=== PATIENT | male | born 1990 | race Caucasian/White ===

== ENCOUNTER 2017-02-27 16:26 | Emergency (ER) | payer OTHER ==
[~2017-02-27 16:26] MED LIST: DIFLUCAN150 M1 PO; FLAGYL500 MG PO; IBUPROFEN800 MG PO; KEFLEX 250MG C250 MG PO; PROAIR HFA0.09 MG/Ac INH; TAMIFLU 75MG75 MG PO; ZITHROMAX500 M2 PO; ZOFRAN ODT4 M1 SL
[2017-02-27 17:06] LABS: ABSOLUTE BASOPHIL COUNT 0.1 /CUMM (0.0-0.2); ABSOLUTE EOSINOPHIL COUNT 0.4 /CUMM (0.0-0.7); ABSOLUTE GRANULOCYTE CT 5.8 /CUMM (1.4-6.5); ABSOLUTE LYMPH COUNT 2.6 /CUMM (1.2-3.4); ABSOLUTE MONOCYTE COUNT 0.6 /CUMM (0.10-0.60); BASOPHIL % 0.8 % (0.0-2.0); EOSINOPHIL % 4.5 % (0-5); GRANULOCYTE % 60.9 % (42.2-75.2); HEMATOCRIT 43.8 % (42-52); MEAN CORPUSCULAR HGB 30.9 PG (27.0-31.0); MEAN CORPUSCULAR HGB CONC 33.8 G/DL (33.0-37.0); MEAN CORPUSCULAR VOLUME 91.5 FL (80.0-94.0); MEAN PLATELET VOLUME 8.6 FL (7.4-10.4); PLATELET COUNT 212 /CUMM (130-400); RBC DISTRIBUTION WIDTH 12.4 % (11.5-14.5); RED BLOOD CELL CT 4.78 /CUMM (4.70-6.10); WHITE BLOOD CELL COUNT 9.5 /CUMM (4.8-10.8)
[2017-02-27] MEDS ORDERED: PERCOCET 5-3251 EACH PO (18:17)
[2017-02-27] MEDS ORDERED: ZOFRAN ODT4 M1 SL (18:20)
--- NOTE | 2017-02-27 18:20 | ED GI/GU/ABDOMINAL COMPLAINT ---
History of Present Illness General Chief Complaint: General Adult Stated Complaint: "I BELIEVE I HAVE ULCERS, ABD PAIN" PER PT Source: patient Exam Limitations: no limitations Vital Signs & Intake/Output Vital Signs & Intake/Output Vital Signs Date Time Temp Pulse Resp B/P Pulse O2 O2 Flow FiO2 Ox Delivery Rate 02/27 1849 98.1 68 20 142/74 98 Room Air 02/27 1648 97.4 70 22 143/80 98 Room Air Allergies Uncoded Allergies: SEASONAL (04/13/14) Reconcile Medications Azithromycin (Zithromax) 500 MG TABLET 2 TAB PO ONCE STD Fluconazole (Diflucan) 150 MG TABLET 1 TAB PO ONCE std Metronidazole (Flagyl) 500 MG TABLET 4 TAB PO ONCE std Ondansetron (Zofran Odt) 4 MG TAB.RAPDIS 1 TAB SL TID nausea Ondansetron (Zofran Odt) 4 MG TAB.RAPDIS 1 TAB SL Q6P PRN nausea Oxycodone HCl/Acetaminophen (Percocet 5-325 MG Tablet) 5 MG-325 MG TABLET 1-2 TAB PO Q6P PRN pain Pantoprazole Sodium (Protonix) 40 MG TABLET.DR 1 TAB PO DAILY abd pain Triage Note: PER PT ?ULCERS SEVERE ABD PAIN MOTRIN WITHOUT EFFECT X 1 MONTH BUT TOO BUSY WITH WORK, AND JUST GOT INSURANCE Triage Nurses Notes Reviewed? yes Onset: Abrupt Duration: week(s):, intermittent Timing: recent history Quality/Severity: moderate, sharpness Location: epigastric, generalized abdomen Radiation: no radiation Activities at Onset: none No Modifying Factors: none HPI: 26-year-old male comes into emergency room with complaints of intermittent abdominal pain is been going on for the past month. Pain is very sharp at times. Patient has taken Motrin with no relief. He denies any vomiting but has associated nausea. Some intermittent fevers. Nothing seems to make the symptoms better or worse. Denies any blood in his stool or changes in bowel movement. Denies any other associated symptoms. Past History Travel History Traveled to [place] past 21 day No Medical History Any Pertinent Medical History? see below for history Neurological: NONE EENT: allergies Cardiovascular: NONE Respiratory: NONE Gastrointestinal: NONE Hepatic: NONE Renal: NONE Musculoskeletal: NONE Psychiatric: ANXIETY,DEPRESSION Endocrine: NONE PATIENT PORTAL CONCIERGE/Reproductive: chlamydia, gonorrhea Surgical History Surgical History: non-contributory Psychosocial History What is your primary language Kazakh Tobacco Use: Current Daily Use Daily Tobacco Use Amount/Type: => 5 Cigarettes daily ETOH Use: denies use Illicit Drug Use: denies illicit drug use, former opiod abuse many years ago Family History Hx Contributory? No Review of Systems Review of Systems Constitutional: Reports: no symptoms. EENTM: Reports: no symptoms. Respiratory: Reports: no symptoms. Cardiovascular: Reports: no symptoms. GI: Reports: see HPI. Genitourinary: Reports: no symptoms. Musculoskeletal: Reports: no symptoms. Skin: Reports: no symptoms. Neurological/Psychological: Reports: no symptoms. Hematologic/Endocrine: Reports: no symptoms. Immunologic/Allergic: Reports: no symptoms. All Other Systems: Reviewed and Negative Physical Exam Physical Exam General Appearance: well developed/nourished, no apparent distress, alert Head: atraumatic, normal appearance Eyes: Bilateral: normal appearance, EOMI. Ears, Nose, Throat, Mouth: hearing grossly normal, moist mucous membrane Neck: normal inspection, full range of motion Respiratory: normal breath sounds, no respiratory distress Cardiovascular: regular rate/rhythm Gastrointestinal: soft, tenderness (mild), no guarding, no rebound tenderness Back: normal inspection Extremities: normal range of motion Neurologic/Psych: awake, alert, oriented x 3, normal gait Skin: intact, normal color Core Measures ACS in differential dx? No Severe Sepsis Present: No Septic Shock Present: No Progress Differential Diagnosis: appendicitis, biliary colic, cholecystitis, diverticulitis, esophageal varices, gastritis, hepatitis, ischemic bowel, inflamm bowel dis, pancreatitis, peptic ulcer, PUD/GERD, perforated viscous, pyelonephritis, SBO, urinary retention, UTI/pyelo Plan of Care: Orders Procedure Date/time Status LIPASE 02/27 165 Complete LACTIC ACID 02/27 165 Complete COMPREHENSIVE METABOLIC PANEL 02/27 1650 Complete CBC WITHOUT DIFFERENTIAL 02/27 1650 Complete AMYLASE 02/27 165 Complete Laboratory Tests 02/27/17 1950: Lactic Acid Cancelled 02/27/17 1700: Anion Gap 11, Estimated GFR > 60, BUN/Creatinine Ratio 11.1, Glucose 110 H, Lactic Acid 0.7, Calcium 9.2, Total Bilirubin 0.6, AST 23, ALT 42, Alkaline Phosphatase 57, Total Protein 6.9, Albumin 4.4, Globulin 2.5, Albumin/Globulin Ratio 1.8, Amylase 206 H, Lipase 2391 H, CBC w Diff NO MAN DIFF REQ, RBC 4.78, MCV 91.5, MCH 30.9, RDW 12.4, MPV 8.6, Gran % 60.9, Lymphocytes % 27.1, Monocytes % 6.7, Eosinophils % 4.5, Basophils % 0.8, Absolute Granulocytes 5.8, Absolute Lymphocytes 2.6, Absolute Monocytes 0.6, Absolute Eosinophils 0.4, Absolute Basophils 0.1, PUBS MCHC 33.8 Initial ED EKG: none Comments: 02/27/2017 8:35:30 PM Patient signed out AGAINST MEDICAL ADVICE. It was recommended that the patient stayed here for diagnostic imaging and further evaluation. It is unclear at this time as to why the patient has pancreatitis. He denies any alcohol use. Patient should get further evaluation with CAT scan/ultrasound. GI Dr. Caal was consulted and he agrees with plan of care. Patient understands the risk of leaving AGAINST MEDICAL ADVICE. It was explained to the patient that pancreatitis is potentially life-threatening. That being said patient is alert and oriented and able to make his own medical decisions. He is hemodynamically stable and does not appear to be any type of distress. He was recommended to the patient to go on a clear liquid diet and he was given pain medications to go home with. He was given information for Dr. Caal to contact tomorrow for follow-up appointment and he was told to return to the emergency room for admission when he was able to. Patient understands everything has been explained to him. Patient was counseled on the opioid prescription due to his previous history of opiate abuse but reports that he is in too much pain at home and needs something stronger. Patient was also started on a proton pump inhibitor. Departure Departure Disposition: HOME OR SELF CARE Condition: Stable Clinical Impression Primary Impression: Pancreatitis Referrals: CARLITO RAMÍREZ,ZHENG CLAUDIO MD,CARLOS (PCP/Family) Additional Instructions: Take Percocet as prescribed. Take Zofran ODT as needed. Clear liquid diet. Follow-up with career information specialist provided. You're leaving AGAINST MEDICAL ADVICE. It has been recommended that he stay here in the hospital. Pancreatitis could potentially be life-threatening. The cause of your pancreatitis at this time is unclear anymore require a further evaluation. You need close follow-up with career information specialist as well as her primary care doctor. Please go over all results of today's visit with your primary care doctor. Contact your primary care doctor to let them know you were here in the emergency room. There may be nonspecific findings which may not be related to your visit today here in the emergency room but may require further evaluation and chronic monitoring by your primary care doctor. If you had a laceration today the chance of foreign body always remains. You should follow-up with your primary care doctor for recheck in 3-5 days for a wound check. If you had an x-ray done there is a chance that a fracture could have been missed on initial read and you should follow-up with your primary care doctor for repeat x-rays if symptoms persist. If your blood pressure was elevated here in the emergency room please have rechecked by her primary care doctor within the next 48 hours by your primary care doctor. If you were prescribed a narcotic here in the emergency room or any type of controlled substances you're not allowed to drive while taking this medication or operate any type of heavy machinery. Narcotics can make you feel lightheaded dizziness nausea and can cause constipation. You may need to sisal picker a stool softener. Thank you for choosing [facility] emergency room. Please return to the emergency room immediately if you have any other concerns worsening of symptoms. Departure Forms: Customer Survey General Discharge Information Prescriptions: Current Visit Scripts Oxycodone HCl/Acetaminophen (Percocet 5-325 MG Tablet) 1-2 TAB PO Q6P PRN pain #20 TAB Ondansetron (Zofran Odt) 1 TAB SL TID #10 TAB Pantoprazole Sodium (Protonix) 1 TAB PO DAILY #30 TAB
[2017-02-27 18:49] VITALS: BP 142/74
[2017-02-27] MEDS ORDERED: PROTONIX40 M3 PO (18:49)
== END 2017-02-27 18:57 | disposition left against medical advice (07) ==
LOC: ERH 16:26
PROVIDERS: Emergency Medicine
DX: K85.90 Acute pancreatitis without necrosis or infection, unspecified (principal)

== ENCOUNTER 2017-03-01 15:08 | Emergency (ER) | payer OTHER ==
[~2017-03-01] VITALS: Ht 182.9 cm; Wt 77.1 kg
[~2017-03-01 15:08] MED LIST changes: +PERCOCET 5-3251 EACH PO; +PROTONIX40 M3 PO
[2017-03-01 15:32] LABS: ABSOLUTE BASOPHIL COUNT 0.1 /CUMM (0.0-0.2); ABSOLUTE EOSINOPHIL COUNT 0.5 /CUMM (0.0-0.7); ABSOLUTE GRANULOCYTE CT 5.3 /CUMM (1.4-6.5); ABSOLUTE LYMPH COUNT 1.9 /CUMM (1.2-3.4); ABSOLUTE MONOCYTE COUNT 0.4 /CUMM (0.10-0.60); BASOPHIL % 0.7 % (0.0-2.0); GRANULOCYTE % 65.5 % (42.2-75.2); MEAN CORPUSCULAR HGB 30.9 PG (27.0-31.0); MEAN CORPUSCULAR HGB CONC 33.5 G/DL (33.0-37.0); MEAN CORPUSCULAR VOLUME 92.4 FL (80.0-94.0); MEAN PLATELET VOLUME 8.7 FL (7.4-10.4); PLATELET COUNT 215 /CUMM (130-400); RBC DISTRIBUTION WIDTH 12.8 % (11.5-14.5); RED BLOOD CELL CT 5.58 /CUMM (4.70-6.10); WHITE BLOOD CELL COUNT 8.1 /CUMM (4.8-10.8)
[2017-03-01 15:38] LABS: HEMATOCRIT 51.5 % (42-52)
--- NOTE | 2017-03-01 15:53 | ED GI/GU/ABDOMINAL COMPLAINT ---
History of Present Illness General Chief Complaint: Abdominal Pain/Flank Pain Stated Complaint: ABNORMAL LABS, ABDOMINAL PAIN (SEEN 02/27) Source: patient, old records Exam Limitations: no limitations Vital Signs & Intake/Output Vital Signs & Intake/Output Vital Signs Date Time Temp Pulse Resp B/P Pulse O2 O2 Flow FiO2 Ox Delivery Rate 03/01 1605 98.3 71 20 120/68 98 Room Air 03/01 1553 97 Room Air 03/01 1519 98.0 98 18 124/74 100 Room Air Allergies Uncoded Allergies: SEASONAL (04/13/14) Reconcile Medications Ondansetron (Zofran Odt) 4 MG TAB.RAPDIS 1 TAB SL TID nausea Oxycodone HCl/Acetaminophen (Percocet 5-325 MG Tablet) 5 MG-325 MG TABLET 1-2 TAB PO Q6P PRN pain Oxycodone HCl/Acetaminophen (Percocet 10-325 MG Tablet) 10 MG-325 MG TABLET 1- 2 TAB PO 4 TIMES/DAY pain Pantoprazole Sodium (Protonix) 40 MG TABLET.DR 1 TAB PO DAILY abd pain Triage Note: PT TO ED FOR "PANCREAS PAIN" REPORTS HE WAS SEEN IN ED FOR SAME RECENTLY "BUT LEFT BECAUSE I HAD TO WORK, MY PANCREAS LEVELS WERE OVER 1999" PT C/O SEVERE ABD PAIN, BACK PAIN AND NAUSEA. Triage Nurses Notes Reviewed? yes Onset: Abrupt Duration: hour(s): Timing: recent history Quality/Severity: moderate, sharpness, severe Location: generalized abdomen Radiation: no radiation Activities at Onset: none No Modifying Factors: none HPI: 26-year-old male comes into emergency room with complaints of abdominal pain. Patient was seen here 2 days ago and diagnosed with pancreatitis. Patient left AGAINST MEDICAL ADVICE at that time because he needed to go to work. Patient was referred to follow-up with gastric urologist. Patient denies any type of fever chills or vomiting currently. He reports that the symptoms of been going on for about a month. He reports that he has had some intermittent fevers over the past month. He denies any alcohol use. Denies any previous abdominal surgeries. He denies any urinary symptoms. Denies any blood in his stool. Denies any prior history of pancreatitis. Nothing seems to make his symptoms better or worse. (MALCOLM RAHMAN,IWONA) Past History Travel History Traveled to [place] past 21 day No Medical History Any Pertinent Medical History? see below for history Neurological: NONE EENT: allergies Cardiovascular: NONE Respiratory: NONE Gastrointestinal: NONE Hepatic: NONE Renal: NONE Musculoskeletal: NONE Psychiatric: ANXIETY,DEPRESSION Endocrine: NONE SSAS DEVELOPER/Reproductive: chlamydia, gonorrhea Surgical History Surgical History: non-contributory Psychosocial History What is your primary language Urdu Tobacco Use: Current Daily Use Daily Tobacco Use Amount/Type: => 5 Cigarettes daily ETOH Use: occasional use Illicit Drug Use: denies illicit drug use Family History Hx Contributory? No (IWONA LOPEZ) Review of Systems Review of Systems Constitutional: Reports: no symptoms. EENTM: Reports: no symptoms. Respiratory: Reports: see HPI. Cardiovascular: Reports: no symptoms. GI: Reports: no symptoms. Genitourinary: Reports: no symptoms. Musculoskeletal: Reports: no symptoms. Skin: Reports: no symptoms. Neurological/Psychological: Reports: no symptoms. Hematologic/Endocrine: Reports: no symptoms. Immunologic/Allergic: Reports: no symptoms. All Other Systems: Reviewed and Negative (IWONA LOPEZ) Physical Exam Physical Exam General Appearance: well developed/nourished, no apparent distress, alert Head: atraumatic, normal appearance Eyes: Bilateral: normal appearance, EOMI. Ears, Nose, Throat, Mouth: hearing grossly normal, moist mucous membrane Neck: normal inspection, full range of motion Respiratory: normal breath sounds, no respiratory distress Cardiovascular: regular rate/rhythm Gastrointestinal: soft, tenderness (mild) Back: normal inspection Extremities: normal range of motion Neurologic/Psych: awake, alert, oriented x 3, normal gait Skin: intact, normal color Core Measures ACS in differential dx? No Severe Sepsis Present: No Septic Shock Present: No (IWONA LOPEZ) Progress Differential Diagnosis: AAA, AMI, appendicitis, cholecystitis, diverticulitis, gastritis, hepatitis Plan of Care: Orders Procedure Date/time Status URINALYSIS 03/01 1511 Complete LIPASE 03/01 1511 Complete COMPREHENSIVE METABOLIC PANEL 03/01 1511 Complete CBC WITHOUT DIFFERENTIAL 03/01 151 Complete AMYLASE 03/01 1511 Complete Laboratory Tests 03/01/17 1525: Urine Color YEL, Urine Clarity CLEAR, Urine pH 6.0, Ur Specific Ajo 1.025, Urine Protein NEG, Urine Ketones TRACE H, Urine Nitrite NEG, Urine Bilirubin NEG@ICTO, Urine Urobilinogen 1.0, Ur Leukocyte Esterase NEG, Ur Microscopic EXAM NOT REQUIRED, Urine Hemoglobin NEG, Urine Glucose NEG 03/01/17 1520: Anion Gap 11, Estimated GFR > 60, BUN/Creatinine Ratio 11.1, Glucose 111 H, Calcium 10.2, Total Bilirubin 0.9, AST 25, ALT 34, Alkaline Phosphatase 61, Total Protein 7.8, Albumin 4.8, Globulin 3.0, Albumin/Globulin Ratio 1.6, Amylase < 30 L, Lipase 48, CBC w Diff NO MAN DIFF REQ, RBC 5.58, MCV 92.4, MCH 30.9, RDW 12.8, MPV 8.7, Gran % 65.5, Lymphocytes % 23.0, Monocytes % 4.8, Eosinophils % 6.0 H, Basophils % 0.7, Absolute Granulocytes 5.3, Absolute Lymphocytes 1.9, Absolute Monocytes 0.4, Absolute Eosinophils 0.5, Absolute Basophils 0.1, PUBS MCHC 33.5 Diagnostic Imaging: Viewed by Me: CT Scan. Discussed w/RAD: CT Scan. Radiology Impression: SERVICE DATE: 03/01/17-1519 EXAM TYPE: CAT - CT ABD & PELVIS W/O IV CONTRAS EXAMINATION: CT ABDOMEN AND PELVIS WITHOUT CONTRAST CLINICAL INFORMATION: Elevated lipase other day. Assess for gallstones or pancreatitis. COMPARISON: None TECHNIQUE: Multidetector volumetric imaging was performed from the superior aspect of the liver through the pubic symphysis. Sagittal and coronal reformatted images were obtained on the technologist's workstation. DLP: 269 mGy-cm FINDINGS: LUNG BASES: The visualized lung bases are unremarkable. LIVER, GALLBLADDER, AND BILIARY TREE: The liver is normal in size, shape, and attenuation. No focal hepatic lesion is present. Top normal caliber of the common bile duct, measuring 0.6 cm. No visualized choledocholithiasis per The gallbladder is unremarkable with no evidence of radiopaque gallstones, gallbladder wall thickening, or obvious pericholecystic inflammatory changes. PANCREAS: No peripancreatic stranding or fluid collection. Unremarkable appearance of the pancreas. SPLEEN: Unremarkable. ADRENAL GLANDS: Unremarkable. KIDNEYS AND URETERS: The kidneys are normal in size, shape, and attenuation. No hydronephrosis, hydroureter, or calculi seen. No perinephric stranding. BLADDER: Decompressed. GASTROINTESTINAL TRACT: Bowel gas pattern is nonobstructive. No evidence of acute bowel inflammation. The appendix is normal. ABDOMINAL WALL: No significant hernia is appreciated. LYMPH NODES: Normal. VASCULAR: Unremarkable. PELVIC VISCERA: Unremarkable. OSSEOUS STRUCTURES: No acute osseous abnormalities. IMPRESSION: 1. Unremarkable appearance of the pancreas. No peripancreatic stranding or fluid collection. 2. Top normal caliber of the common bile duct. No visualized choledocholithiasis. 3. Unremarkable appearance of the gallbladder. No radiodense gallstones. DICTATED BY: RAVINDRA KINCAID MD DATE/TIME DICTATED:03/01/171554 [facility] GROOM:NHUNG DATE/TIME TRANSCRIBED:03/01/171554 Initial ED EKG: none Comments: 03/01/2017 6:08:59 PM Patient clinically looks well. Nontoxic-appearing. In no apparent distress. Lipase and amylase are normal today. No abnormal findings on CAT scan. Patient was given a slip for an outpatient ultrasound. Case was discussed with Dr. Aguila. Patient will follow-up with GI next week in the office. Patient was told to contact them on Friday and also set up the ultrasound for Friday. (IWONA LOPEZ) Departure Departure Disposition: HOME OR SELF CARE Condition: Stable Clinical Impression Primary Impression: Abdominal pain Referrals: CARLOS CLAUDIO MD (PCP/Family) Additional Instructions: Take oxycodone for pain. Follow-up with mailroom associate that was provided to already. Call number on Friday. These return to the emergency room if any other concerns worsening symptoms. Please go over all results of today's visit with your primary care doctor. Contact your primary care doctor to let them know you were here in the emergency room. There may be nonspecific findings which may not be related to your visit today here in the emergency room but may require further evaluation and chronic monitoring by your primary care doctor. If you had a laceration today the chance of foreign body always remains. You should follow-up with your primary care doctor for recheck in 3-5 days for a wound check. If you had an x-ray done there is a chance that a fracture could have been missed on initial read and you should follow-up with your primary care doctor for repeat x-rays if symptoms persist. If your blood pressure was elevated here in the emergency room please have rechecked by her primary care doctor within the next 48 hours by your primary care doctor. If you were prescribed a narcotic here in the emergency room or any type of controlled substances you're not allowed to drive while taking this medication or operate any type of heavy machinery. Narcotics can make you feel lightheaded dizziness nausea and can cause constipation. You may need to slate picker a stool softener. Thank you for choosing [facility] emergency room. Please return to the emergency room immediately if you have any other concerns worsening of symptoms. Departure Forms: Customer Survey General Discharge Information Prescriptions: Current Visit Scripts Oxycodone HCl/Acetaminophen (Percocet 10-325 MG Tablet) 1-2 TAB PO 4 TIMES/DAY #15 TAB (IWONA LOPEZ) PA/STATE APPELLATE CLERK Co-Sign Statement Statement: ED Attending supervision documentation- [] I saw and evaluated the patient. I have also reviewed all the pertinent lab results and diagnostic results. I agree with the findings and the plan of care as documented in the PA's/STATE APPELLATE CLERK's documentation. x I have reviewed the ED Record and agree with the PA's/STATE APPELLATE CLERK's documentation. [] Additions or exceptions (if any) to the PAs/STATE APPELLATE CLERK's note and plan are summarized below: [] (JULIA RAMÍREZ,RAISSA)
[2017-03-01 16:05] VITALS: BP 120/68
--- NOTE | 2017-03-01 16:08 | CT SCAN REPORT ---
EXAMINATION: CT ABDOMEN AND PELVIS WITHOUT CONTRAST CLINICAL INFORMATION: Elevated lipase other day. Assess for gallstones or pancreatitis. COMPARISON: None TECHNIQUE: Multidetector volumetric imaging was performed from the superior aspect of the liver through the pubic symphysis. Sagittal and coronal reformatted images were obtained on the technologist's workstation. DLP: 269 mGy-cm FINDINGS: LUNG BASES: The visualized lung bases are unremarkable. LIVER, GALLBLADDER, AND BILIARY TREE: The liver is normal in size, shape, and attenuation. No focal hepatic lesion is present. Top normal caliber of the common bile duct, measuring 0.6 cm. No visualized choledocholithiasis per The gallbladder is unremarkable with no evidence of radiopaque gallstones, gallbladder wall thickening, or obvious pericholecystic inflammatory changes. PANCREAS: No peripancreatic stranding or fluid collection. Unremarkable appearance of the pancreas. SPLEEN: Unremarkable. ADRENAL GLANDS: Unremarkable. KIDNEYS AND URETERS: The kidneys are normal in size, shape, and attenuation. No hydronephrosis, hydroureter, or calculi seen. No perinephric stranding. BLADDER: Decompressed. GASTROINTESTINAL TRACT: Bowel gas pattern is nonobstructive. No evidence of acute bowel inflammation. The appendix is normal. ABDOMINAL WALL: No significant hernia is appreciated. LYMPH NODES: Normal. VASCULAR: Unremarkable. PELVIC VISCERA: Unremarkable. OSSEOUS STRUCTURES: No acute osseous abnormalities. IMPRESSION: 1. Unremarkable appearance of the pancreas. No peripancreatic stranding or fluid collection. 2. Top normal caliber of the common bile duct. No visualized choledocholithiasis. 3. Unremarkable appearance of the gallbladder. No radiodense gallstones.
[2017-03-01] MEDS ORDERED: PERCOCET 10-321 EACH PO (17:16)
== END 2017-03-01 17:36 ==
LOC: ERH 15:08
PROVIDERS: Physician Assistant Medical
DX: R10.84 Generalized abdominal pain (principal)
CPT/HCPCS: 74176; 81003

== ENCOUNTER 2017-03-04 14:36 | Emergency (ER) | payer OTHER ==
[~2017-03-04 14:36] MED LIST changes: +PERCOCET 10-321 EACH PO
[2017-03-04 14:52] VITALS: BP 118/87
[2017-03-04 16:06] LABS: ABSOLUTE BASOPHIL COUNT 0.1 /CUMM (0.0-0.2); ABSOLUTE EOSINOPHIL COUNT 0.5 /CUMM (0.0-0.7); ABSOLUTE GRANULOCYTE CT 6.8 /CUMM (1.4-6.5); ABSOLUTE LYMPH COUNT 1.9 /CUMM (1.2-3.4); ABSOLUTE MONOCYTE COUNT 0.6 /CUMM (0.10-0.60); BASOPHIL % 0.6 % (0.0-2.0); EOSINOPHIL % 5.4 % (0-5); GRANULOCYTE % 68.9 % (42.2-75.2); MEAN CORPUSCULAR HGB 30.7 PG (27.0-31.0); MEAN CORPUSCULAR HGB CONC 33.2 G/DL (33.0-37.0); MEAN CORPUSCULAR VOLUME 92.3 FL (80.0-94.0); MEAN PLATELET VOLUME 8.5 FL (7.4-10.4); PLATELET COUNT 196 /CUMM (130-400); RBC DISTRIBUTION WIDTH 12.8 % (11.5-14.5); RED BLOOD CELL CT 4.95 /CUMM (4.70-6.10); WHITE BLOOD CELL COUNT 9.8 /CUMM (4.8-10.8)
[2017-03-04 16:11] LABS: HEMATOCRIT 45.7 % (42-52)
--- NOTE | 2017-03-04 16:39 | ED GI/GU/ABDOMINAL COMPLAINT ---
History of Present Illness General Chief Complaint: Abdominal Pain/Flank Pain Stated Complaint: ONGOING ABD. PAIN, MISSED U/S TODAY DUE TO PAIN Source: patient, old records Exam Limitations: no limitations Vital Signs & Intake/Output Vital Signs & Intake/Output Vital Signs Date Time Temp Pulse Resp B/P Pulse O2 O2 Flow FiO2 Ox Delivery Rate 03/04 1452 98.1 85 18 118/87 97 Room Air Allergies Uncoded Allergies: SEASONAL (04/13/14) Reconcile Medications Ondansetron (Zofran Odt) 4 MG TAB.RAPDIS 1 TAB SL TID nausea Oxycodone HCl/Acetaminophen (Percocet 5-325 MG Tablet) 5 MG-325 MG TABLET 1-2 TAB PO Q6P PRN pain Oxycodone HCl/Acetaminophen (Percocet 10-325 MG Tablet) 10 MG-325 MG TABLET 1- 2 TAB PO 4 TIMES/DAY pain Oxycodone HCl/Acetaminophen (Percocet 7.5-325 MG Tablet) 7.5 MG-325 MG TABLET 1 TAB PO TID pain Pantoprazole Sodium (Protonix) 40 MG TABLET.DR 1 TAB PO DAILY abd pain Triage Note: TRIAGE; PT TO ED WITH ABDOMINAL PAIN. WAS DIAGNOSED WITH PANCREATITIS. PT STATES THAT HE WAS SUPPOSED TO HAVE AN ULTRASOUND TODAY BUT WAS IN TOO MUCH PAIN TO GO TO IT. STATES HE GOES TO IOP CLASSES BUT STATES HE NEEDS TO FOCUS ON HIS HEALTH AND TOLD HE SHOULDNT GO TO THOSE CLASSES IN ORDER TO DO THAT. HAS BEEN ON 10MG OXY'S WITH NO HELP. Triage Nurses Notes Reviewed? yes Onset: Abrupt Duration: day(s): Timing: recent history Location: epigastric No Modifying Factors: none HPI: 26-year-old male comes into emergency room for further evaluation of persistent abdominal pain. This is the patient's third visit in the past week. Patient still has not called the helper coordinator like he was supposed to. Patient didnt get Outpatient ultrasound of his abdomen like he was supposed to. Patient reports she still having some intermittent pain to his abdomen. Denies any fever or chills. Denies any change in bowel movement. Denies any other associated symptoms. (IWONA LOPEZ) Past History Travel History Traveled to [place] past 21 day No Medical History Any Pertinent Medical History? 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 No (IWONA LOPEZ) Review of Systems Review of Systems Constitutional: Reports: no symptoms. EENTM: Reports: no symptoms. Respiratory: Reports: no symptoms. Cardiovascular: Reports: no symptoms. GI: Reports: see HPI. Genitourinary: Reports: no symptoms. Musculoskeletal: Reports: no symptoms. Skin: Reports: no symptoms. Neurological/Psychological: Reports: no symptoms. Hematologic/Endocrine: Reports: no symptoms. Immunologic/Allergic: Reports: no symptoms. All Other Systems: Reviewed and Negative (IWONA LOPEZ) Physical Exam Physical Exam General Appearance: well developed/nourished, alert, awake Head: atraumatic, normal appearance Eyes: Bilateral: normal appearance. Ears, Nose, Throat, Mouth: hearing grossly normal, moist mucous membrane Neck: normal inspection Respiratory: normal breath sounds, no respiratory distress Cardiovascular: regular rate/rhythm Gastrointestinal: soft, non-tender Back: normal inspection Extremities: normal range of motion Neurologic/Psych: awake, alert, oriented x 3, normal gait, normal mood/affect Skin: intact, normal color Core Measures ACS in differential dx? No Severe Sepsis Present: No Septic Shock Present: No (IWONA LOPEZ) Progress Differential Diagnosis: appendicitis, biliary colic, bowel obstruction, pancreatitis, peptic ulcer, PUD/GERD, perforated viscous, pyelonephritis, ureterolithiasis, urinary retention, UTI/pyelo Plan of Care: Orders Procedure Date/time Status LIPASE 03/04 1553 Complete COMPREHENSIVE METABOLIC PANEL 03/04 1553 Complete CBC WITHOUT DIFFERENTIAL 03/04 1553 Complete AMYLASE 03/04 1553 Complete Laboratory Tests 03/04/17 1557: Anion Gap 8, Estimated GFR > 60, BUN/Creatinine Ratio 13.8, Glucose 95, Calcium 9.5, Total Bilirubin 0.5, AST 27, ALT 35, Alkaline Phosphatase 57, Total Protein 6.8, Albumin 4.2, Globulin 2.6, Albumin/Globulin Ratio 1.6, Amylase 37, Lipase 263, CBC w Diff NO MAN DIFF REQ, RBC 4.95, MCV 92.3, MCH 30.7, RDW 12.8, MPV 8.5 , Gran % 68.9, Lymphocytes % 19.2 L, Monocytes % 5.9, Eosinophils % 5.4 H, Basophils % 0.6, Absolute Granulocytes 6.8 H, Absolute Lymphocytes 1.9, Absolute Monocytes 0.6, Absolute Eosinophils 0.5, Absolute Basophils 0.1, PUBS MCHC 33.2 Diagnostic Imaging: Viewed by Me: Ultrasound. Discussed w/RAD: Ultrasound. Radiology Impression: EXAM TYPE: US - US-LIMITED ABDOMEN EXAMINATION: US ABDOMEN LIMITED CLINICAL INFORMATION: Abdominal pain. COMPARISON: CT 03/01/2017 TECHNIQUE: Real-time imaging of the right upper quadrant abdominal viscera. FINDINGS: PANCREAS: Normal. LIVER: Normal. The liver demonstrates normal size, contour and echogenicity. No focal lesion or intrahepatic biliary duct dilatation. GALLBLADDER: Normal. The gallbladder is physiologically distended without evidence of stones, sludge, polyps, wall thickening or pericholecystic fluid. COMMON BILE DUCT: Normal in caliber measuring 0.4 cm in diameter. RIGHT KIDNEY: Normal. No hydronephrosis. No renal calculi or focal parenchymal lesions. The kidney measures 12.9 cm in maximum dimension. FREE FLUID: None. IMPRESSION: Normal right upper quadrant ultrasound. No gallstones. DICTATED BY: NASRIN TRUONG MD DATE/TIME DICTATED:03/04/171632 Initial ED EKG: none (IWONA LOPEZ) Departure Departure Disposition: HOME OR SELF CARE Condition: Stable Clinical Impression Primary Impression: Abdominal pain Referrals: UNKNOWN (PCP/Family) Additional Instructions: Follow-up with helper coordinator provided. Return if any concerns worsening symptoms. Please go over all results of today's visit with your primary care doctor. Contact your primary care doctor to let them know you were here in the emergency room. There may be nonspecific findings which may not be related to your visit today here in the emergency room but may require further evaluation and chronic monitoring by your primary care doctor. If you had a laceration today the chance of foreign body always remains. You should follow-up with your primary care doctor for recheck in 3-5 days for a wound check. If you had an x-ray done there is a chance that a fracture could have been missed on initial read and you should follow-up with your primary care doctor for repeat x-rays if symptoms persist. If your blood pressure was elevated here in the emergency room please have rechecked by her primary care doctor within the next 48 hours by your primary care doctor. If you were prescribed a narcotic here in the emergency room or any type of controlled substances you're not allowed to drive while taking this medication or operate any type of heavy machinery. Narcotics can make you feel lightheaded dizziness nausea and can cause constipation. You may need to shrimp picker a stool softener. Thank you for choosing [facility] emergency room. Please return to the emergency room immediately if you have any other concerns worsening of symptoms. Departure Forms: Customer Survey General Discharge Information Prescriptions: Current Visit Scripts Oxycodone HCl/Acetaminophen (Percocet 7.5-325 MG Tablet) 1 TAB PO TID #10 TAB Comments 03/04/2017 5:27:49 PM Clinically looks well. No apparent distress. Patient has not followed up like he was supposed to. I explained point to the patient the importance of on the helper coordinator. There is no need for the patient to be admitted at this time. (MALCOLM RAHMAN,IWONA) PA/FORGING PRESS LEVER TENDER Co-Sign Statement Statement: ED Attending supervision documentation- [] I saw and evaluated the patient. I have also reviewed all the pertinent lab results and diagnostic results. I agree with the findings and the plan of care as documented in the PA's/FORGING PRESS LEVER TENDER's documentation. x I have reviewed the ED Record and agree with the PA's/FORGING PRESS LEVER TENDER's documentation. [] Additions or exceptions (if any) to the PAs/FORGING PRESS LEVER TENDER's note and plan are summarized below: [] (JULIA RAMÍREZ,RAISSA)
[2017-03-04] MEDS ORDERED: PERCOCET 7.5-31 EACH PO (17:24)
== END 2017-03-04 16:58 ==
LOC: ERH 14:36
PROVIDERS: Physician Assistant Medical
DX: R10.13 Epigastric pain (principal)

== ENCOUNTER 2018-03-18 01:28 | Emergency (ER) | payer OTHER ==
[~2018-03-18 01:28] MED LIST changes: +PERCOCET 7.5-31 EACH PO
--- NOTE | 2018-03-18 01:41 | ED GENERAL ADULT ---
History of Present Illness General Chief Complaint: ETOH/Drug Related Complaint Stated Complaint: OPIOID DETOX Source: patient Exam Limitations: no limitations Vital Signs & Intake/Output Vital Signs & Intake/Output . Allergies Coded Allergies: No Known Allergies (03/18/18) Reconcile Medications Buprenorphine HCl/Naloxone HCl (Suboxone 8 MG-2 MG Sl Film) 8 MG-2 MG FILM 2 STR SL DAILY opioid dependence fourteen...[id number] Clonidine HCl 0.1 MG TABLET 1 TAB PO BID PRN withdrawal symptoms Metoclopramide HCl (Reglan) 10 MG TABLET 1 TAB PO 4 TIMES/DAY PRN nausea 30 minutes before meals and bedtime Ondansetron (Zofran Odt) 4 MG TAB.RAPDIS 1 TAB SL TID nausea Oxycodone HCl/Acetaminophen (Percocet 5-325 MG Tablet) 5 MG-325 MG TABLET 1-2 TAB PO Q6P PRN pain Oxycodone HCl/Acetaminophen (Percocet 10-325 MG Tablet) 10 MG-325 MG TABLET 1- 2 TAB PO 4 TIMES/DAY pain Oxycodone HCl/Acetaminophen (Percocet 7.5-325 MG Tablet) 7.5 MG-325 MG TABLET 1 TAB PO TID pain Pantoprazole Sodium (Protonix) 40 MG TABLET. 1 TAB PO DAILY abd pain Triage Nurses Notes Reviewed? yes HPI: 27 yo gentleman seeking help for opioid dependence. He shares that he snorts 2 bags of heroin per day, denies other drug use, denies SI/HI. "I just need some help." He notes that he had been successful with suboxone in the past and is knowledgable about how to use suboxone. He is interested in a trial. Past History Travel History Traveled to [place] past 21 day No Medical History Any Pertinent Medical History? 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 No Review of Systems Review of Systems Constitutional: Reports: no symptoms. EENTM: Reports: no symptoms. Respiratory: Reports: no symptoms. Cardiovascular: Reports: no symptoms. GI: Reports: no symptoms. Genitourinary: Reports: no symptoms. Musculoskeletal: Reports: no symptoms. Skin: Reports: no symptoms. Neurological/Psychological: Reports: no symptoms. Hematologic/Endocrine: Reports: no symptoms. Immunologic/Allergic: Reports: no symptoms. All Other Systems: Reviewed and Negative Physical Exam Physical Exam General Appearance: well developed/nourished, anxious Head: atraumatic, normal appearance Eyes: Bilateral: normal appearance. Ears, Nose, Throat: normal pharynx, normal ENT inspection Neck: normal inspection, supple, full range of motion Respiratory: normal breath sounds, chest non-tender, no respiratory distress, quiet respiration, lungs clear Cardiovascular: regular rate/rhythm Gastrointestinal: normal bowel sounds, soft, non-tender Back: normal inspection, normal range of motion Extremities: normal inspection, normal capillary refill, normal range of motion, no edema Neurologic/Psych: no motor/sensory deficits, awake, alert, oriented x 3 Skin: intact, normal color Core Measures ACS in differential dx? No CVA/TIA Diagnosis: No Sepsis Present: No Sepsis Focused Exam Completed? No Progress Differential Diagnoses I considered the following diagnoses in my evaluation of the patient: opioid dependence/withdrawal. Plan of Care: Orders Procedure Date/time Status URINE DRUG SCREEN FOR ER ONLY 03/18 130 Active ETHANOL 03/18 130 Active COMPREHENSIVE METABOLIC PANEL 03/18 130 Active CBC WITHOUT DIFFERENTIAL 03/18 130 Active Initial ED EKG: none Departure Departure Disposition: HOME OR SELF CARE Condition: Stable Clinical Impression Primary Impression: Opioid dependence Referrals: Patient Has No Primary Care Dr (PCP/Family) Departure Forms: Customer Survey General Discharge Information Prescriptions: Current Visit Scripts Clonidine HCl 1 TAB PO BID PRN withdrawal symptoms #4 TAB Metoclopramide HCl (Reglan) 1 TAB PO 4 TIMES/DAY PRN nausea #4 TAB 30 minutes before meals and bedtime Buprenorphine HCl/Naloxone HCl (Suboxone 8 MG-2 MG Sl Film) 2 STR SL DAILY #14 STR fourteen...[id number] Comments discussed at length... pt knowledgable about self-induction.... pt referred to outpatient program. rx given to patient. Critical Care Note Critical Care Note Critical Care Time: non-applicable
[2018-03-18] MEDS ORDERED: REGLAN10 M1 PO (01:47)
[2018-03-18] MEDS ORDERED: CLONIDINE HCL0.1 MG PO (01:47)
[2018-03-18] MEDS ORDERED: SUBOXONE 8 MG-1 EACH SL (01:47)
[2018-03-18 01:55] VITALS: BP 124/68
== END 2018-03-18 01:56 ==
LOC: ERH 01:28
DX: F11.20 Opioid dependence, uncomplicated (principal)
CPT/HCPCS: 80307; G0480